=== PATIENT | female | born 1955 | race Caucasian/White ===

== ENCOUNTER 2024-05-02 19:54 | Emergency (ER) | payer MEDICARE, BC ==
[2024-05-02] MEDS ORDERED: Sodium Chloride 0.9% 10 ML Syringe FLUSH PRN (19:58)
[2024-05-02 20:10] LABS: BASOPHILS PERCENT AUTO 0.2 % (0.0-1.0); EOSINOPHILS PERCENT AUTO 3.1 % (1.0-3.0); HEMATOCRIT 46.9 % (37.0-47.0); HEMOGLOBIN 15.7 g/dL (12.0-16.0); LYMPHOCYTES PERCENT AUTO 26.9 % (20.5-50.1); MEAN CORPUSCULAR HEMOGLOBIN 35.1 pg (27.0-34.0); MEAN CORPUSCULAR HGB CONC 33.5 g/dL (33.0-35.0); MEAN CORPUSCULAR VOLUME 104.9 fL (80-100); MONOCYTES PERCENT AUTO 8.7 % (2-8); NEUTROPHILS PERCENT AUTO 61.1 % (42.2-75.2); PLATELET COUNT,PLT 230 10^3/uL (150-450); RED BLOOD CELL COUNT 4.47 10^6/uL (4.2-5.4); WHITE BLOOD CELL COUNT,WBC 9.1 10^3/uL (5.0-10.0)
[2024-05-02 20:31] LABS: A/G RATIO 0.9; ALBUMIN 3.6 g/dL (3.4-5.0); ANION GAP 7.9 mEq/L (7-13); BILIRUBIN TOTAL 1.2 mg/dL (0.2-1.0); BUN/CREATININE RATIO 25.9 (No establ ref range); CALCIUM 9.7 mg/dL (8.5-10.1); CREATININE 0.81 mg/dL (0.55-1.02); EST CRCL DRUG DOSING (CG) 46.42 mL/min; MAGNESIUM 2.1 mg/dL (1.8-2.4); POTASSIUM,K 3.9 mmol/L (3.5-5.1); PROTEIN TOTAL,TP 7.7 g/dL (6.4-8.2)
[2024-05-02 20:34] LABS: PROTHROMBIN TIME 10.6 SEC (9.0-12.0); PTT,PARTIAL THROMBOPLSTIN TIME 22.4 SEC (22.0-34.0)
== END 2024-05-02 23:04 | disposition home or self-care (01) ==
LOC: DL.ED 19:54
DX: I49.3 Ventricular premature depolarization (principal); R00.2 Palpitations; R07.89 Other chest pain; Z79.899 Other long term (current) drug therapy; Z90.49 Acquired absence of other specified parts of digestive tract
CPT/HCPCS: 36415; 71045; 80053; 83735; 83880; 84484; 85025; 85610; 85730; 93005; 93010; 99284; 99285

== ENCOUNTER 2024-08-13 09:59 | Emergency (ER) | payer MEDICARE, BC ==
[2024-08-13] MEDS: Acetaminophen 500 MG Tab PO ONE (10:37)
[2024-08-13] MEDS: Ibuprofen 400 MG Tab PO ONE (10:38)
[2024-08-13] MEDS: oxyCODONE 5 MG Tab PO ONE (10:42)
[2024-08-13] MEDS: fentaNYL 100 MCG/2 ML SDV IVPUSH ONE (12:00)
[2024-08-13] MEDS: fentaNYL 100 MCG/2 ML SDV IVPUSH PRN (12:49)
[2024-08-13] MEDS: Lidocaine 1% 30 ML SDV INJECT ONE (12:50)
== END 2024-08-13 15:03 | disposition home or self-care (01) ==
LOC: DL.ED 09:59
DX: S52.601A Unspecified fracture of lower end of right ulna, initial encounter for closed fracture (principal); Z79.899 Other long term (current) drug therapy; Z90.49 Acquired absence of other specified parts of digestive tract; W19.XXXA Unspecified fall, initial encounter
CPT/HCPCS: 25605; 73110; 96374; 96376; 99283; A9270; J2003; J3010; 99284

== ENCOUNTER 2024-08-14 17:43 | Emergency (ER) | payer MEDICARE, BC | END 2024-08-14 18:37 | disposition home or self-care (01) | LOC: DL.ED 17:43 | DX: S52.501A Unspecified fracture of the lower end of right radius, initial encounter for closed fracture (principal); Z79.899 Other long term (current) drug therapy; Z90.49 Acquired absence of other specified parts of digestive tract; X58.XXXA Exposure to other specified factors, initial encounter | CPT/HCPCS: 99283 ==